=== PATIENT | female | born 1985 | race Caucasian/White ===

== ENCOUNTER 2017-05-23 10:04 | Emergency (ER) | payer OTHER ==
[~2017-05-23 10:04] MED LIST: ASCA500 PO; CALC600T9 PO; CETI10TA84 PO; CITA40TA4 PO; FERR1TAB23 PO; FLV1 PO; INSDGI SC; LISI-461 PO; NVLGI SQ; OMG3 PO; PRENTAB26 PO; SNG10 PO; VTMD1000 PO; ZNTT/150 PO
[2017-05-23 10:14] VITALS: TEMP 36.6; Ht 165.1 cm
[2017-05-23] MEDS ORDERED: SODIUM CHLORIDE 0.9% 1000ML 1,000 ML IV STA (10:41)
[2017-05-23] MEDS ORDERED: MoRPHine SULFATE 10 MG/ML CARP/VIAL IV STA (10:41)
[2017-05-23] MEDS ORDERED: ONDANSETRON INJ 2 MG/ML 2 ML VIAL IV STA (10:41)
[2017-05-23] MEDS ORDERED: TAMSULOSIN HCL 0.4 MG CAP PO ONE (10:45)
[2017-05-23 10:59] LABS: URINE APPEARANCE CLEAR (CLEAR); URINE BILIRUBIN NEG (NEG); URINE COLOR YELLOW; URINE NITRITE NEG (NEG); URINE SPECIFIC GRAVITY 1.004 (1.000-1.030); UROBILINOGEN NEG (NEG); ZZUR CULT IF INDIC CLEAN CATCH NO
[2017-05-23 11:00] LABS: MANUAL MICROSCOPIC REQUIRED? NO; REVIEW REQ? NO
[2017-05-23 11:13] LABS: BASO % 0.2 %; BASO ABS # 0.02 K/uL (0-0.2); COMPLETE YES; EOS % 1.6 %; HEMATOCRIT 43.3 % (37-47); IG% 0.3 %; LYMPH % 21.1 %; LYMPH ABS # 1.85 K/uL (1.2-3.4); MEAN CELL VOLUME 90.2 fL (80-100); MEAN CORPUSCULAR HEMOGLOBIN 30.2 pg (25-34); MEAN CORPUSCULAR HGB CONC 33.5 g/dl (32-36); MEAN PLATELET VOLUME 10.3 fL (7.4-10.4); MONO % 5.7 %; NEUT % 71.1 %; PLATELET COUNT 226 K/uL (130-400); WHITE BLOOD COUNT 8.75 K/uL (4.8-10.8)
--- NOTE | 2017-05-23 11:25 | DIAGNOSTIC IMAGING REPORT ---
CT SCAN OF THE ABDOMEN AND PELVIS WITHOUT CONTRAST CLINICAL HISTORY: right flank pain COMPARISON STUDY: 09/15/2013 TECHNIQUE: CT scan of the abdomen and pelvis was performed from the lung bases to the proximal femurs. Images are reviewed in the axial, sagittal, and coronal planes. IV contrast was not administered for this examination. A dose lowering technique was utilized adhering to the principles of ALARA. CT DOSE: 1029.94 mGycm FINDINGS: Lower chest: The heart is normal in size and configuration, without pericardial effusion. The lung bases and pleural spaces are clear. Liver: No focal masses are visualized. The liver is mildly enlarged measuring 23 cm Gallbladder: Surgically absent Spleen: Normal in size and attenuation. Pancreas: Unremarkable. Adrenal glands: Unremarkable. Kidneys: There are several right renal calculi, the largest of which measures 2.5 mm. There is a 6 mm calculus either within the intravesical portion of the right distal ureter, or within the bladder. There is mild ureteral ectasia. There is mild fullness the right renal collecting system. Bowel: There are no transition zone to indicate bowel obstruction. There is no acute diverticulitis. There is no acute appendicitis. Peritoneum: There is no intraperitoneal free air or abdominal ascites. Vasculature: The abdominal aorta is normal in course and caliber. Adenopathy: None. Pelvic viscera: The bladder, and pelvic viscera are unremarkable. Skeletal structures: No destructive osseous lesions are seen. IMPRESSION: 1. Right-sided nephrolithiasis 2. 6 mm calculus either within the intravesical portion of the distal right ureter, or within the bladder. Mild secondary ureteral ectasia and fullness the right renal collecting system 3. No evidence of bowel obstruction. No evidence of free air. Electronically signed by: Simone Hendricks M.D. 05/23/2017 11:24 AM Dictated Date/Time: 05/23/2017 11:20 AM
[2017-05-23 11:27] LABS: BLOOD UREA NITROGEN 15 mg/dl (7-18); BUN/CREATININE RATIO 28.9 (10-20); CALCIUM 8.8 mg/dl (8.5-10.1); CARBON DIOXIDE 26 mmol/L (21-32); CHLORIDE 108 mmol/L (98-107); CREATININE 0.51 mg/dl (0.60-1.20); GLUCOSE 135 mg/dl (70-99); POTASSIUM 3.9 mmol/L (3.5-5.1); SODIUM 139 mmol/L (136-145)
[2017-05-23 11:31] LABS: ALKALINE PHOSPHATASE 69 U/L (45-117); ALT/SGPT 31 U/L (12-78); AST/SGOT 16 U/L (15-37)
[2017-05-23] MEDS ORDERED: INSPMPNVLG (11:39)
[2017-05-23] MEDS ORDERED: EMPA1TAB3 PO (11:40)
--- NOTE | 2017-05-23 11:40 | EMERGENCY ROOM VISIT NOTE ---
History First contact with patient: 10:18 Chief Complaint: BACK PAIN Stated Complaint: RIGHT BACK/LOWER BACK PAIN/PELVIC PAIN History of Present Illness The patient is a 32 year old female who presents to the Emergency Room with complaints of right flank pain. The patient states that the pain started on Saturday. It was mainly on the right side of her back. She thought it was muscular since she was waxing her boat over the weekend. She states since the early part of the week the pain has now radiated down into her groin region. She also complains that it feels like she is not voiding completely. She denies any dysuria, hematuria or urgency. The patient always has urinary frequency due to her diabetes. The patient denies any nausea or vomiting. The patient denies any fever. The patient admits to history of cholecystectomy and appendectomy. Review of Systems 10 system review was performed and was negative unless stated otherwise history of present illness. Past Medical/Surgical History Medical Problems: (1) Diabetes mellitus type 2 Tubal ligation, appendectomy, cholecystectomy Social History Smoking Status: Current Every Day Smoker Alcohol Use: occasionally Drug Use: none Marital Status: Housing Status: lives with family Occupation Status: employed Current/Historical Medications Scheduled Ascorbic Acid (Vitamin C), 500 MG PO QAM Calcium Carbonate-Vitamin D (Calcium + D), 1 TAB PO QAM Cetirizine (Zyrtec), 10 MG PO QAM Cholecalciferol (Vitamin D3), 1,000 UNITS PO QAM Citalopram (Citalopram Hydrobromide), 1 TAB PO DAILY Ferrous Sulfate (Iron), 1 TAB PO QAM Fish Oil (Fish Oil), 1 GM PO QAM Folic Acid (Folic Acid), 1 MG PO QAM Insulin Glargine (Lantus), 38 UNITS SC QAM Lisinopril (Zestril), 10 MG PO QAM Montelukast Sod (Montelukast Sodium), 10 MG PO QAM Multivit/Min/Iron/Fol Ac/Pren ( Vitamin), 1 TAB PO DAILY Ranitidine (Zantac), 150 MG PO DAILYBID Scheduled PRN Insulin Aspart (Novolog), 1 DOSE SQ AC PRN for CARB COUNT Physical Exam Vital Signs Date Time Temp Pulse Resp B/P (MAP) Pulse Ox O2 Delivery O2 Flow Rate FiO2 05/23/17 10:14 36.6 67 18 163/96 98 Room Air Physical Exam GENERAL: 32 year-old obese white female appears in no acute distress. MENTAL Status: Alert and oriented 3. MOUTH: Mucosa is moist NECK: Supple, no lymphadenopathy noted. No carotid bruits noted. LUNGS: Clear auscultation without wheezes rales or rhonchi. CARDIAC: Regular rate and rhythm without murmur. Pulses is full and equal throughout. BACK: Right CVA tenderness noted. LUMBAR SPINE: No gross bony deformity noted. The patient is nontender to palpation over the spinous processes in the paravertebral region. ABDOMEN: Positive bowel sounds all 4 quadrants. Soft, tenderness to palpation in the right flank region. Remainder of abdomen is Nontender to palpation without organomegaly or masses. EXTREMITIES: No cyanosis or edema noted. Medical Decision & Procedures ER Provider Diagnostic Interpretation: CT SCAN OF THE ABDOMEN AND PELVIS WITHOUT CONTRAST CLINICAL HISTORY: right flank pain COMPARISON STUDY: 09/15/2013 TECHNIQUE: CT scan of the abdomen and pelvis was performed from the lung bases to the proximal femurs. Images are reviewed in the axial, sagittal, and coronal planes. IV contrast was not administered for this examination. A dose lowering technique was utilized adhering to the principles of ALARA. CT DOSE: 1029.94 mGycm FINDINGS: Lower chest: The heart is normal in size and configuration, without pericardial effusion. The lung bases and pleural spaces are clear. Liver: No focal masses are visualized. The liver is mildly enlarged measuring 23 cm Gallbladder: Surgically absent Spleen: Normal in size and attenuation. Pancreas: Unremarkable. Adrenal glands: Unremarkable. Kidneys: There are several right renal calculi, the largest of which measures 2.5 mm. There is a 6 mm calculus either within the intravesical portion of the right distal ureter, or within the bladder. There is mild ureteral ectasia. There is mild fullness the right renal collecting system. Bowel: There are no transition zone to indicate bowel obstruction. There is no acute diverticulitis. There is no acute appendicitis. Peritoneum: There is no intraperitoneal free air or abdominal ascites. Vasculature: The abdominal aorta is normal in course and caliber. Adenopathy: None. Pelvic viscera: The bladder, and pelvic viscera are unremarkable. Skeletal structures: No destructive osseous lesions are seen. IMPRESSION: 1. Right-sided nephrolithiasis 2. 6 mm calculus either within the intravesical portion of the distal right ureter, or within the bladder. Mild secondary ureteral ectasia and fullness the right renal collecting system 3. No evidence of bowel obstruction. No evidence of free air. Electronically signed by: Simone Hendricks M.D. 05/23/2017 11:24 AM Dictated Date/Time: 05/23/2017 11:20 AM Laboratory Results 05/23/17 10:50 Red Blood Count 4.80, Mean Corpuscular Volume 90.2, Mean Corpuscular Hemoglobin 30.2, Mean Corpuscular Hemoglobin Concent 33.5, Mean Platelet Volume 10.3, Neutrophils (%) (Auto) 71.1, Lymphocytes (%) (Auto) 21.1, Monocytes (%) (Auto) 5.7, Eosinophils (%) (Auto) 1.6, Basophils (%) (Auto) 0.2, Neutrophils # (Auto) 6.21, Lymphocytes # (Auto) 1.85, Monocytes # (Auto) 0.50, Eosinophils # (Auto) 0.14, Basophils # (Auto) 0.02 05/23/17 10:50 Test 05/23/17 10:31 05/23/17 10:50 Urine Color YELLOW Urine Appearance CLEAR (CLEAR) Urine pH 7.0 (4.5-7.5) Urine Specific [place] 1.004 (1.000-1.030) Urine Protein NEG (NEG) Urine Glucose (UA) 1+ (NEG) Urine Ketones NEG (NEG) Urine Occult Blood 2+ (NEG) Urine Nitrite NEG (NEG) Urine Bilirubin NEG (NEG) Urine Urobilinogen NEG (NEG) Urine Leukocyte Esterase NEG (NEG) Urine WBC (Auto) 0 /hpf (0-5) Urine RBC (Auto) 0-4 /hpf (0-4) Urine Hyaline Casts (Auto) 0 /lpf (0-5) Urine Epithelial Cells (Auto) 5-10 /lpf (0-5) Urine Bacteria (Auto) NEG (NEG) White Blood Count 8.75 K/uL (4.8-10.8) Red Blood Count 4.80 M/uL (4.2-5.4) Hemoglobin 14.5 g/dL (12.0-16.0) Hematocrit 43.3 % (37-47) Mean Corpuscular Volume 90.2 fL (80-100) Mean Corpuscular Hemoglobin 30.2 pg (25-34) Mean Corpuscular Hemoglobin Concent 33.5 g/dl (32-36) Platelet Count 226 K/uL (130-400) Mean Platelet Volume 10.3 fL (7.4-10.4) Neutrophils (%) (Auto) 71.1 % Lymphocytes (%) (Auto) 21.1 % Monocytes (%) (Auto) 5.7 % Eosinophils (%) (Auto) 1.6 % Basophils (%) (Auto) 0.2 % Neutrophils # (Auto) 6.21 K/uL (1.4-6.5) Lymphocytes # (Auto) 1.85 K/uL (1.2-3.4) Monocytes # (Auto) 0.50 K/uL (0.11-0.59) Eosinophils # (Auto) 0.14 K/uL (0-0.5) Basophils # (Auto) 0.02 K/uL (0-0.2) RDW Standard Deviation 45.0 fL (36.4-46.3) RDW Coefficient of Variation 13.6 % (11.5-14.5) Immature Granulocyte % (Auto) 0.3 % Immature Granulocyte # (Auto) 0.03 K/uL (0.00-0.02) Anion Gap 5.0 mmol/L (3-11) Estimated GFR () 146.4 Estimated GFR (Non- 126.3 BUN/Creatinine Ratio 28.9 (10-20) Calcium Level 8.8 mg/dl (8.5-10.1) Total Bilirubin 0.4 mg/dl (0.2-1) Direct Bilirubin < 0.1 mg/dl (0-0.2) Aspartate Amino Transf (AST/SGOT) 16 U/L (15-37) Alanine Aminotransferase (ALT/SGPT) 31 U/L (12-78) Alkaline Phosphatase 69 U/L (45-117) Total Protein 7.4 gm/dl (6.4-8.2) Albumin 3.9 gm/dl (3.4-5.0) Lipase 117 U/L (73-393) Medications Administered Medications (Trade) Dose Ordered Sig/Elieser Route Start Time Stop Time Status Last Admin Dose Admin Sodium Chloride 1,000 ml @ 999 mls/hr Q1H1M STAT IV 05/23/17 10:41 05/23/17 11:41 05/23/17 10:53 999 MLS/HR Morphine Sulfate (MoRPHine SULFATE INJ) 6 mg NOW STAT IV 05/23/17 10:41 05/23/17 10:46 DC 05/23/17 10:55 6 MG Ondansetron HCl (Zofran Inj) 4 mg NOW STAT IV 05/23/17 10:41 05/23/17 10:46 DC 05/23/17 10:53 4 MG Tamsulosin HCl (Flomax Cap) 0.4 mg NOW ONCE PO 05/23/17 10:45 05/23/17 10:46 DC 05/23/17 10:53 0.4 MG ED Course The patient was evaluated. The patient's EMR medication list were reviewed. IV access was obtained. The patient was given 1 L normal saline wide-open. She was also given morphine 6 mg IV and Zofran 4 mg IV push. She was also given Flomax 0.4 mg by mouth. CBC differential, renal profile, LFTs and lipase levels were ordered. Urine dip was negative. Urine dip revealed positive blood positive protein and glucose but no leukocytes or nitrates. Urinalysis and culture are pending. CT stone study was ordered and interpreted by the radiologist as above with a 5 mm stone at the right UV junction or in the bladder. There is also several stones in the right kidney. Labs are reviewed and were unremarkable. Urinalysis revealed positive blood but no leukocytes or nitrates. Culture is pending. The patient was reevaluated and informed of the findings. She was feeling better. The patient was discharged home in stable condition.. Medical Decision Differential diagnosis include muscular lumbar strain, UTI, pyelonephritis, ureteral calculi, renal colic [place] Drug Monitoring Program Search Results: patient reviewed within database Medication Reconcilliation Current Medication List: was personally reviewed by ri Blood Pressure Screening Patient's blood pressure: Elevated blood pressure Blood pressure disposition: Elevated BP felt to be situational Impression Primary Impression: Ureteral calculus, right Departure Information Dispostion Home / Self-Care Condition GOOD Referrals Amanda Mi M.D. (PCP) Forms HOME CARE DOCUMENTATION FORM, IMPORTANT VISIT INFORMATION Patient Instructions Kidney Stones - [facility], [facility] Additional Instructions Drink a lot of water. Strain all urine. Tylenol as needed for pain. Take OxyIR as needed for more severe pain. Do not drive while taking the OxyIR. Take Flomax as directed. Take Zofran as needed for nausea. If you experience any uncontrolled severe abdominal pain, uncontrolled nausea vomiting, fever, return to ER immediately. If you do not pass the stone in 4-5 days, follow-up with Dr. Johnston.
[2017-05-23] MEDS ORDERED: TAMS0.4C38 PO (11:42)
[2017-05-23] MEDS ORDERED: OXYC1TAB3 PO (11:42)
[2017-05-23] MEDS ORDERED: ONDA4TAB10 SL (11:42)
[2017-05-23 12:05] VITALS: BP 143/92; PULSE 72; O2SAT 99
== END 2017-05-23 12:07 | disposition home or self-care (01) ==
LOC: C.EDB 10:05
DX: N20.2 Calculus of kidney with calculus of ureter (principal); E11.9 Type 2 diabetes mellitus without complications; Z90.49 Acquired absence of other specified parts of digestive tract; Z98.51 Tubal ligation status; F17.210 Nicotine dependence, cigarettes, uncomplicated; Z79.4 Long term (current) use of insulin; Z79.899 Other long term (current) drug therapy